=== PATIENT | male | born 1960 | race Caucasian/White ===

== ENCOUNTER 2023-10-11 10:28 | Emergency (ER) | payer SELFPAY ==
[2023-10-11 10:44] VITALS: BP 132/108
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
[2023-10-11] MEDS: ROXICODONE 5 MG PO (12:34)
== END 2023-10-11 12:44 | disposition home or self-care (01) ==
LOC: EMR 10:28
PROVIDERS: EMERGENCY PHYSICIAN Emergency Medicine; FAMILY PHYSICIAN Family Medicine
DX: S52.122A Displaced fracture of head of left radius, initial encounter for closed fracture (principal); V87.8XXA Person injured in other specified noncollision transport accidents involving motor vehicle (traffic), initial encounter
CPT/HCPCS: 99283; 73080